=== PATIENT | female | born 1965 | race Caucasian/White ===

== ENCOUNTER 2023-07-17 15:33 | Emergency (ER) | payer OTHER ==
[~2023-07-17] VITALS: Ht 172.7 cm; Wt 107.0 kg
[~2023-07-17 15:33] MED LIST: AMITRIPTYLINE H25 MG PO; ESIDRIX25 MG PO; LEVALBUTEROL INH; LIPITOR20 MG PO; LISINOPRIL10 MG PO; REXULTI PO; SPIRIVA18 MCG INH; TOUJEO SQ
[2023-07-17 15:49] VITALS: O2SAT 96
== END 2023-07-17 16:47 | disposition home or self-care (01) ==
LOC: ER 15:49
DX: R50.9 Fever, unspecified (principal); R42 Dizziness and giddiness; I10 Essential (primary) hypertension; E11.9 Type 2 diabetes mellitus without complications; F41.9 Anxiety disorder, unspecified; E66.9 Obesity, unspecified
CPT/HCPCS: 93005; 99282

== ENCOUNTER 2024-12-15 10:46 | Inpatient (IN) | payer OTHER ==
[~2024-12-15] VITALS: Ht 172.7 cm; Wt 90.7 kg
[2024-12-15 10:46] VITALS: TEMP 97.7
[2024-12-15 11:46] LABS: BASOPHILS % 0.1 % (0.0-1.0); EOSINOPHILS # (AUTO) 0.2 (0.0-0.4); EOSINOPHILS % 2.6 % (0.0-6.0); HEMATOCRIT 43.8 % (34.2-44.1); HEMOGLOBIN 14.6 g/dL (12.0-16.0); LYMPHOCYTES # (AUTO) 1.5 (1.0-3.2); MEAN CORPUSCULAR HEMOGLOBIN 30.5 pg (28-32); MEAN CORPUSCULAR HGB CONC 33.3 g/dL (31-35); MEAN CORPUSCULAR VOLUME 91.6 fL (81-99); MONOCYTES # (AUTO) 0.4 (0.2-0.8); PLATELET COUNT 143 x10e3/uL (140-360); RED BLOOD COUNT 4.78 x10e6/uL (3.6-5.1); RED CELL DISTRIBUTION WIDTH 13.1 % (11.7-14.4); WHITE BLOOD COUNT 7.04 x10e3/uL (4.8-10.8)
[2024-12-15] MEDS: ONDANSETRON HCL INJ 2MG/ML 2ML 2 MG/ML VIAL IV STA (11:51)
[2024-12-15] MEDS: Morphine 4mg INJECTION 4 MG/ML INJ IV STA (11:51)
[2024-12-15 11:58] LABS: INR 0.87; PROTHROMBIN TIME 12.6 seconds (11.9-14.5)
[2024-12-15 11:59] LABS: PARTIAL THROMBOPLASTIN TIME 29.1 seconds (23.8-35.5)
[2024-12-15] MEDS: SODIUM CHLORIDE 0.9% 1000ML 1,000 ML IV SCH (11:59)
[2024-12-15 12:11] LABS: ALBUMIN 3.5 g/dL (3.5-5.0); ANION GAP 13.9 mmol/L (8-16); BILIRUBIN,TOTAL 0.6 mg/dL (0.2-1.2); CALCIUM 9.3 mg/dL (8.4-10.2); CREATININE, SERUM 0.88 mg/dL (0.57-1.11); MAGNESIUM 1.8 MG/DL (1.3-2.1); POTASSIUM 3.9 mmol/L (3.5-5.1); TOTAL PROTEIN 7.1 g/dL (6.5-8.1)
[2024-12-15 12:22] LABS: TROPONIN I 0.006 ng/mL (0-0.300)
[2024-12-15] MEDS ORDERED: Morphine 4mg INJECTION 4 MG/ML INJ IV PRN (12:30)
[2024-12-15] MEDS: VANCOMYCIN 1.25GM/250 ML (PEG) 250 ML IV ONE (12:31)
[2024-12-15 12:41] VITALS: PULSE 84; RESP 16
[2024-12-15 13:39] VITALS: BP 131/69; PULSE 70; RESP 17; TEMP 97.5; O2SAT 98
[2024-12-15 13:48] VITALS: BP 131/69; PULSE 70; RESP 17; TEMP 97.5; O2SAT 98
[2024-12-15] MEDS ORDERED: AMBIEN10 MG PO (14:36)
[2024-12-15] MEDS ORDERED: DEXTROAMP-AMPHE30 M1 PO (14:36)
[2024-12-15] MEDS ORDERED: MOUNJARO7.5 MG/0.5 SQ (14:36)
[2024-12-15] MEDS ORDERED: PREGABALIN300 MG PO (14:36)
[2024-12-15] MEDS ORDERED: REXULTI2 MG PO (14:36)
[2024-12-15] MEDS ORDERED: JARDIANCE25 MG PO (14:36)
[2024-12-15] MEDS ORDERED: VENTOLIN HFA18 GM INH (14:36)
[2024-12-15] MEDS ORDERED: ARIPIPRAZOLE20 MG PO (14:36)
[2024-12-15] MEDS ORDERED: CLONAZEPAM2 MG PO (14:36)
[2024-12-15] MEDS ORDERED: DEXTROSE 50% SYRINGE 50 ML IV PRN (14:45)
[2024-12-15] MEDS: HYDROCODONE/APAP 10MG-325MG TAB PO PRN (14:50)
[2024-12-15 16:00] VITALS: BP 118/67; PULSE 70; RESP 17; TEMP 97.5; O2SAT 96
[2024-12-15] MEDS: INSULIN LISPRO 100 UNIT/1 ML 3ML VIAL SQ SCH (16:42)
[2024-12-15] MEDS: ONDANSETRON HCL INJ 2MG/ML 2ML 2 MG/ML VIAL IV PRN (17:27)
[2024-12-15] MEDS: HYDROMORPHONE 1MG/1ML INJ IV PRN (17:27)
[2024-12-15 20:00] VITALS: BP 143/72; PULSE 82; RESP 18; TEMP 97.7; O2SAT 97
[2024-12-16] VITALS (7 sets, daily range): BP systolic 126–158; BP diastolic 68–87; PULSE 69–77; RESP 18–20; TEMP 97.4–97.7; O2SAT 96–99
[2024-12-16] MEDS: Vancomycin IV 1 GM in SODIUM CHLORIDE 0.9% 250ML 250 ML IV SCH (00:30)
[2024-12-16 06:56] LABS: ALBUMIN 3.1 g/dL (3.5-5.0); ALBUMIN/GLOBULIN RATIO 1.1 (0.8-2.0); ANION GAP 15.1 mmol/L (8-16); BILIRUBIN,TOTAL 0.6 mg/dL (0.2-1.2); CALCIUM 8.5 mg/dL (8.4-10.2); CREATININE, SERUM 0.84 mg/dL (0.57-1.11); POTASSIUM 4.1 mmol/L (3.5-5.1); TOTAL PROTEIN 5.8 g/dL (6.5-8.1)
[2024-12-16 07:00] LABS: BASOPHILS % 0.3 % (0.0-1.0); EOSINOPHILS # (AUTO) 0.2 (0.0-0.4); EOSINOPHILS % 3.4 % (0.0-6.0); HEMATOCRIT 40.3 % (34.2-44.1); HEMOGLOBIN 13.1 g/dL (12.0-16.0); LYMPHOCYTES # (AUTO) 2.1 (1.0-3.2); LYMPHOCYTES % 32.4 % (18.0-39.1); MEAN CORPUSCULAR HEMOGLOBIN 30.3 pg (28-32); MEAN CORPUSCULAR HGB CONC 32.5 g/dL (31-35); MEAN CORPUSCULAR VOLUME 93.3 fL (81-99); MONOCYTES # (AUTO) 0.4 (0.2-0.8); MONOCYTES % 6.1 % (4.4-11.3); NEUTROPHILS # (AUTO) 3.7 (2.1-6.9); NEUTROPHILS % 57.3 % (38.7-80.0); PLATELET COUNT 166 x10e3/uL (140-360); RED BLOOD COUNT 4.32 x10e6/uL (3.6-5.1); WHITE BLOOD COUNT 6.41 x10e3/uL (4.8-10.8)
[2024-12-16] MEDS: HYDROMORPHONE 2MG/ML IV PRN (13:00)
[2024-12-16] MEDS: ZOLPIDEM TARTRATE 10 MG TAB PO SCH (21:00)
[2024-12-16] MEDS: CLONAZEPAM 1 MG TAB PO SCH (21:12)
[2024-12-17] VITALS (8 sets, daily range): BP systolic 155–177; BP diastolic 76–96; PULSE 72–81; RESP 17–20; TEMP 97.6–97.8; O2SAT 97–100
[2024-12-17] MEDS: AMITRIPTYLINE HCL 25 MG TAB PO SCH (08:26)
[2024-12-17] MEDS: PREGABALIN 75 MG CAP PO SCH (08:27)
[2024-12-17] MEDS: ARIPIPRAZOLE 20 MG TAB PO SCH (08:27)
[2024-12-17] MEDS: EMPAGLIFLOZIN 10 MG TABLET PO SCH (08:28)
[2024-12-17] MEDS: ALBUTEROL 90 MCG/ACT INHALER INH SCH (08:33)
[2024-12-17] MEDS ORDERED: HYDRALAZINE HCL 20 MG/ML VIAL IV PRN (10:00)
[2024-12-17] MEDS: AMLODIPINE BESYLATE 5 MG TAB PO ONE (11:21)
[2024-12-18] VITALS: BP 167/75; PULSE 77; RESP 20; TEMP 97.2; O2SAT 97
[2024-12-18 04:00] VITALS: BP 179/93; PULSE 95; RESP 19; TEMP 97.2; O2SAT 99
[2024-12-18 08:00] VITALS: BP 146/88; PULSE 81; RESP 18; TEMP 98.3; O2SAT 97
[2024-12-18 08:10] VITALS: BP 146/88; PULSE 81; RESP 18; TEMP 98.3; O2SAT 97
[2024-12-18 12:00] VITALS: BP 148/98; PULSE 83; RESP 18; TEMP 98; O2SAT 98
[2024-12-18] MEDS ORDERED: DOXYCYCLINE HY100 MG PO (14:41)
[2024-12-18] MEDS ORDERED: ACETAMINOPHEN-1 EAC4 PO (14:43)
[2024-12-18] MEDS ORDERED: MUPIROCIN22 GM TOP (14:50)
[2024-12-18] MEDS ORDERED: DOXYCYCLINE HYCLATE TABLET 100 MG TAB PO SCH (17:00)
== END 2024-12-18 15:25 | disposition home or self-care (01) | DRG 603 ==
LOC: ER 10:51 → ERHOLD 12:27 → MED/SURG3 13:25
PROVIDERS: ADMIT Internal Medicine; ATTEND Internal Medicine
DX: L03.114 Cellulitis of left upper limb (principal); E11.65 Type 2 diabetes mellitus with hyperglycemia; I10 Essential (primary) hypertension; S61.203A Unspecified open wound of left middle finger without damage to nail, initial encounter; M65.942 Unspecified synovitis and tenosynovitis, left hand; F41.9 Anxiety disorder, unspecified; F32.A Depression, unspecified; W26.0XXA Contact with knife, initial encounter; Z90.710 Acquired absence of both cervix and uterus; Z88.6 Allergy status to analgesic agent; F17.200 Nicotine dependence, unspecified, uncomplicated
CPT/HCPCS: 36415; 80053; 80202; 82948; 83735; 84484; 85025; 85610; 85730; 87040; 93005; 99252; 99284; J1171; J2270; J2405; J2543; J7030; J7050